=== PATIENT | male | born 1985 | race Caucasian/White ===

== ENCOUNTER → 2021-12-08 | Outpatient (CLI) | payer BC ==
--- NOTE | 2021-12-08 10:55 | XR ---
KUB HISTORY: Calculus of ureter, N 20.1 frontal KUB submitted on 2 images Calcifications are present within the pelvis bilaterally. Bowel gas mixture detail. This calcificatio n superimposed over the left kidney measuring approximately 3 mm, smaller calcifications may be prese nt midpole and lower pole. IMPRESSION: Nephrolithiasis noted on the left. Limitations as described. Indeterminate calcifications in the pelvis.
== END | disposition home or self-care (01) ==
LOC: RADXRMAIN 09:42
PROVIDERS: ATTEND Urology
DX: N20.0 Calculus of kidney (principal)
CPT/HCPCS: 74018